=== PATIENT | female | born 1945 | race Caucasian/White ===

== ENCOUNTER 2019-09-17 12:49 | Emergency (ER) | payer MEDICARE, SELFPAY ==
[2019-09-17 12:51] VITALS: BP 116/69; PULSE 99; RESP 20; TEMP 37; O2SAT 94; BMI 31.1
[2019-09-17 13:00] VITALS: RESP 18
--- NOTE | 2019-09-17 13:04 | ED_ITS ---
HPI - Extremity Problem General: Chief complaint: Extremity Injury, Upper Stated complaint: fall/right hand pain Time Seen by Provider: 09/17/19 12:52 History of Present Illness: HPI Narrative: 74-year-old female comes in she hit her second MP joint this morning on a door she got tripped and fell no other injuries. She denies striking her head or any loss consciousness. MD Complaint: extremity pain and extremity swelling Onset (ago): hour(s) Pain Consistency: constant Location: right Quality: aching Radiation: none Relieving factors: nothing Exacerbating factors: nothing Associated symptoms: Reports arthralgias; Deny chest pain or fever(s) Review of Systems Const: Denies: fever(s), chills, body aches, change in appetite, fatigue or malaise ENMT: Denies: throat pain, ear or mastoid pain, nasal discharge or nasal congestion Card: Denies: chest pain, edema, dyspnea on exertion or orthopnea Resp: Denies: dyspnea, productive cough or non-productive cough GI: Denies: abdominal pain, nausea, vomiting, hematemesis, coffee ground gaston sis, diarrhea, constipation, bloating, hematochezia or melena : Denies: flank pain, difficulty voiding, dysuria, urinary frequency or urinary urgency PFSH ED PFSH: Family History Family/Other Diabetes Heart disease Social History Smoking and tobacco status: current every day smoker cigarettes Packs smoked per day: 1 Second hand smoke exposure: No Alcohol intake: never Lives independently: Yes Household members: none Marital status: / Current occupational status: retired History of recent travel: No Current gender identity: Female Physical Exam Const: COMMON NORMALS: no acute distress GENERAL APPEARANCE: cooperative and comfortable ORIENTATION/CONSCIOUSNESS: Yes awake, Yes oriented to person, Yes oriented to place and Yes oriented to time Neck/C-Spine: COMMON NORMALS: no JVD Resp: COMMON NORMALS: normal respiratory effort, No retractions, No use of accessory muscles and clear to auscultation bilaterally AUSCULTATION: clear to auscultation bilaterally Cardio: COMMON NORMALS: no JVD, regular rate, regular rhythm and No murmurs present (Cardio) RATE: regular rate RHYTHM: regular rhythm Extremity: COMMON NORMALS: normal to inspection, capillary refill normal, no clubbing, cyanosis or edema, no calf tenderness and no pedal edema Neuro: SENSORIUM/ORIENTATION: Yes oriented to person, Yes oriented to place and Yes oriented to time Skin: COMMON NORMALS: no rashes or lesions noted GENERAL SKIN EXAM: no rashes or lesions noted Course Vital Signs: Vital signs: Vital Signs Temperature 98.6 F 09/17/19 12:51 Pulse Rate 99 09/17/19 12:51 Respiratory Rate 18 09/17/19 13:00 Blood Pressure 116/69 09/17/19 12:51 Pulse Oximetry 94 09/17/19 12:51 MDM - Extremity (Nontraumatic) MDM Narrative: Medical decision making narrative: A lot of arthritis in the hand but no acute fractures noted. We will put her in a splint for a day or 2 and the can resume regular activity follow-up primary care doctor. Prescription for diclofenac and steroid Dosepak Discharge Plan Discharge Patient Disposition: Home, Self-Care Clinical Impression: Arthralgia Condition: Stable Prescriptions: New diclofenac sodium 75 mg tablet,delayed release (DR/EC) 75 mg PO Q12H PRN (Reason: pain) Qty: 20 RF: 0 Medrol (Brandon) 4 mg tablets,dose pack See Rx Instructions .ROUTE .COMPLEX Qty: 21 RF: 0 No Action albuterol sulfate 2.5 mg /3 mL (0.083 %) solution for nebulization 2.5 mg INHALATION Q4H PRNRF: 0 pantoprazole 40 mg tablet,delayed release (DR/EC) 40 mg PO DAILY RF: 0 ferrous sulfate [Feosol] 325 mg (65 mg iron) tablet 325 mg PO BID RF: 0 cholecalciferol (vitamin D3) 2,000 unit tablet 2,000 unit PO DAILY RF: 0 Referrals: Ofelia Curran APN [Primary Care Provider] - Coding Level of Care Code ED Refund Clerk for Willemg Fwd Exam Detailed
--- NOTE | 2019-09-17 13:04 | XRR_ITS ---
PROCEDURE INFORMATION: Exam: XR Right Hand Exam date and time: 09/17/2019 1:05 PM Age: 74 years old Clinical indication: Injury or trauma; Initial encounter; Hand; Right; Injury date: 09/17/2019; Injury details: Fall this am, abrasion 2nd digit with swelling; Additional info: Hand pain TECHNIQUE: Imaging protocol: XR Right hand. Views: 3 or more views. COMPARISON: No relevant prior studies available. FINDINGS: Bones/joints: There is mild osteoarthritis seen with narrowing of the interphalangeal articulations of multiple digits and sclerotic changes involving the 1st metacarpal carpal articulation. The examination is negative for acute fractures. Soft tissues: Soft tissue edema is seen in the dorsal and ventral aspect in the projection of the metacarpal phalangeal articulation of the 2nd digit. XR/XR hand RT min 3V* [id number] IMPRESSION: Soft tissue edema near the 2nd metatarsophalangeal articulation Osteoarthritis Negative for acute bony abnormality
[2019-09-17 13:54] VITALS: RESP 18; O2SAT 94
== END 2019-09-17 13:57 | disposition home or self-care (01) ==
PROVIDERS: Emergency Provider Family Medicine; PCP Nurse Practitioner Family
DX: M25.541 Pain in joints of right hand (principal); F17.210 Nicotine dependence, cigarettes, uncomplicated
CPT/HCPCS: 12345; 29125; 73130; 99281; 99283

== ENCOUNTER → 2019-12-21 11:17 | Outpatient (BNVA) | payer MEDICARE, SELFPAY | PROVIDERS: PCP Nurse Practitioner Family; Referring Provider Nurse Practitioner Family; Visit Provider Specialist | DX: S69.91XA Unspecified injury of right wrist, hand and finger(s), initial encounter (principal); X58.XXXA Exposure to other specified factors, initial encounter; M19.041 Primary osteoarthritis, right hand | CPT/HCPCS: 73130 ==

== ENCOUNTER → 2020-02-15 12:30 | Outpatient (BNVA) | payer MEDICARE, SELFPAY | PROVIDERS: PCP Nurse Practitioner Family; Visit Provider Specialist | DX: M19.041 Primary osteoarthritis, right hand (principal) | CPT/HCPCS: 73130 ==

== ENCOUNTER 2022-01-27 11:49 | Outpatient (CLI) | payer MEDICARE, SELFPAY ==
--- NOTE | 2022-01-27 | XR_ITS ---
WS: [id number] Exam: XR thoracic spine 2V [id number] Date/Time of Exam: 01/27/2022 12:22 PM Reason For Exam: THORACIC SPINE PAIN Mild compression deformity of the upper plate of T11 noted. No posterior displacement. About 10% loss of vertebral height. No other fractures are seen. There is spondylosis. Mild dextroscoliosis and ost eopenia. Recommendations: Nuclear bone scan or MRI of the T-spine could be helpful for further workup if thoug ht to be clinically necessary. XR/XR thoracic spine 2V [id number] IMPRESSION: 1. Mild compression deformity of the upper plate of T11. Fracture age is indete rminate. No displacement or significant loss of vertebral height. 2. Degenerative changes and osteopenia. Mild dextroscoliosis.
--- NOTE | 2022-01-27 | XR_ITS ---
WS: [id number] Exam: XR acute abdomen series [id number] Date/Time of Exam: 01/27/2022 12:22 PM Reason For Exam: ABD PAIN PA chest. The lungs are fully inflated and clear. Unremarkable cardiomediastinal silhouette. No pleur al effusions noted. Bony structures are intact. Flat and erect abdomen. No bowel obstruction or free air. Numerous surgical clips and sutures in the upper abdomen. Moderate amount retained stool in the transverse and right colon. No sign of organ enl argement. Bony structures are intact. XR/XR acute abdomen series [id number] IMPRESSION: 1. No acute cardiopulmonary finding. 2. No acute abdominal process. Moderate amount retained stool in the colon.
== END 2022-01-27 11:50 | disposition home or self-care (01) ==
PROVIDERS: PCP Nurse Practitioner Family; Visit Provider Nurse Practitioner Family
DX: M54.6 Pain in thoracic spine (principal); R10.84 Generalized abdominal pain; M85.88 Other specified disorders of bone density and structure, other site
CPT/HCPCS: 72070; 74022

== ENCOUNTER 2022-02-19 09:37 | Oncology outpatient (recurring) (ONCR) | payer MEDICARE, SELFPAY ==
[2022-02-12 08:23] LABS: Basophils # 0.1 10^3/uL (0.0-0.1); Basophils % 0.8 %; Eosinophils # 0.2 10^3/uL (0.0-0.8); Eosinophils % 3.1 %; Hematocrit 27.6 % (37.0-47.0); Hemoglobin 7.7 g/dL (11.5-15.3); Lymphocytes # 0.9 10^3/uL (0.8-4.8); Lymphocytes % 14.6 %; Mean Corpuscular HGB Conc 27.9 g/dL (30.0-36.0); Mean Corpuscular Hemoglobin 28.7 pg (28.0-34.0); Mean Platelet Volume 10.2 fL (7.4-10.4); Monocytes # 0.5 10^3/uL (0.2-0.9); Monocytes % 8.1 %; Neutrophils # 4.69 10^3/uL (1.8-7.7); Neutrophils % 73.1 %; Nucleated Red Blood Cells % 0 %; Platelet Count 321 10^3/cmm (130-400); Red Blood Count 2.68 10^6/uL (4.1-5.3); Red Cell Distribution Width 14.8 % (12.1-15.1); White Blood Count 6.4 10^3/uL (4.0-10.0)
[2022-02-12 10:02] LABS: Ferritin 47 ng/mL (15-150); Iron 25 ug/dL (37-145); Total Iron Binding Capacity 414 mcg/dl; Unsaturated Iron Binding 389 ug/dL (112-347)
[2022-02-12 10:18] LABS: Vitamin B12 654 pg/mL (232-1245)
[2022-02-19 10:06] LABS: Basophils % 0.8 %; Eosinophils # 0.2 10^3/uL (0.0-0.8); Eosinophils % 3.1 %; Hematocrit 30.3 % (37.0-47.0); Hemoglobin 8.6 g/dL (11.5-15.3); Lymphocytes # 0.8 10^3/uL (0.8-4.8); Lymphocytes % 16.2 %; Mean Corpuscular HGB Conc 28.4 g/dL (30.0-36.0); Mean Corpuscular Hemoglobin 28.9 pg (28.0-34.0); Mean Corpuscular Volume 101.7 fl (81-99); Mean Platelet Volume 10.1 fL (7.4-10.4); Monocytes # 0.4 10^3/uL (0.2-0.9); Monocytes % 8.6 %; Neutrophils # 3.46 10^3/uL (1.8-7.7); Neutrophils % 71.1 %; Nucleated Red Blood Cells % 0 %; Platelet Count 345 10^3/cmm (130-400); Red Blood Count 2.98 10^6/uL (4.1-5.3); Red Cell Distribution Width 13.3 % (12.1-15.1); White Blood Count 4.9 10^3/uL (4.0-10.0)
== END 2022-03-05 23:59 | disposition home or self-care (01) ==
PROVIDERS: PCP Nurse Practitioner Family; Visit Provider Internal Medicine Hematology & Oncology
DX: D64.9 Anemia, unspecified (principal); Z79.899 Other long term (current) drug therapy; F17.210 Nicotine dependence, cigarettes, uncomplicated; D50.9 Iron deficiency anemia, unspecified
CPT/HCPCS: 36415; 82607; 82728; 83540; 83550; 85025; 99204; 99214